=== PATIENT | male | born 1960 | race Caucasian/White ===

== ENCOUNTER 2023-03-24 07:17 | Day surgery (SDC) | payer BC ==
[~2023-03-24 07:17] MED LIST: Lactated Ringers 1,000 ML IV SCH
[2023-03-24] MEDS ORDERED: Midazolam 1 MG/ML 2 ML SDV ONE (08:11)
[2023-03-24] MEDS ORDERED: fentaNYL 100 MCG/2 ML SDV ONE (08:11)
[2023-03-24] MEDS ORDERED: Propofol 200 MG/20 ML SDV ONE (08:22)
== END 2023-03-24 09:13 | disposition home or self-care (01) ==
LOC: VM.SDS 07:17
PROVIDERS: ATTEND Family Medicine
DX: K57.30 Diverticulosis of large intestine without perforation or abscess without bleeding (principal); E78.5 Hyperlipidemia, unspecified; I12.9 Hypertensive chronic kidney disease with stage 1 through stage 4 chronic kidney disease, or unspecified chronic kidney disease; E11.22 Type 2 diabetes mellitus with diabetic chronic kidney disease; N18.9 Chronic kidney disease, unspecified; M54.9 Dorsalgia, unspecified; I48.91 Unspecified atrial fibrillation; E66.9 Obesity, unspecified; Z79.85 Long-term (current) use of injectable non-insulin antidiabetic drugs; Z79.899 Other long term (current) drug therapy; Z91.040 Latex allergy status; Z88.8 Allergy status to other drugs, medicaments and biological substances; Z91.018 Allergy to other foods
CPT/HCPCS: 00731; 00811; 45378; 82947; J2250; J2704; J3010; J7120